=== PATIENT | female | born 1995 | race Caucasian/White ===

== ENCOUNTER 2017-05-24 11:01 | Inpatient (IN) | payer BC ==
--- NOTE | 2017-05-24 12:41 | RAD ---
HISTORY: Dyspnea Study: PA and lateral chest Comparison: None Findings: The trachea is midline. The cardiac silhouette is unremarkable. The lungs are clear without focal m ass or consolidation. There is no effusion or pneumothorax. The bony thorax is grossly unremarkable . IMPRESSION: No acute cardiopulmonary disease. Reported By:
[2017-05-25] MEDS: DUONEB 0.5 MG/3 MG NEB SCH ×3 (12:30→20:52)
[2017-05-25] MEDS ORDERED: SALINE 3% 15 ML NEB TX NEB ONE (13:00)
[2017-05-25] MEDS ORDERED: SALINE 3% 15 ML NEB TX ONE (14:27)
[2017-05-25] MEDS ORDERED: NS 1/2 1000 ML IV 1,000 ML IV ONE (14:47)
[2017-05-25] MEDS ORDERED: ZOSYN VIAL 4.5 GM IV ONE (14:48)
[2017-05-25] MEDS: TAMIFLU PO SCH ×2 (14:49→22:00)
[2017-05-25] MEDS: ZOSYN VIAL 4.5 GM 4.5 GM in NS 100 ML IV + SPIKE MINIBAG* 100 ML IV SCH ×2 (14:49→22:22)
[2017-05-25] MEDS: NS 1/2 1000 ML IV 1,000 ML IV SCH (14:49)
[2017-05-25 14:53] LABS: BASOPHILS % (AUTO) 0.1 % (0.2-1.0); HEMATOCRIT 38.7 % (36.0-47.0); HEMOGLOBIN 13.1 g/dL (12.0-16.0); LYMPHOCYTES # (AUTO) 1.3 X10^3/uL (1.3-2.9); LYMPHOCYTES % (AUTO) 6.2 % (21.0-51.0); MEAN CORPUSCULAR HEMOGLOBIN 29.9 pg (27.0-34.0); MEAN CORPUSCULAR HGB CONC 33.9 g/dL (33.0-35.0); MEAN CORPUSCULAR VOLUME 88.2 fL (80.0-100.0); MEAN PLATELET VOLUME 9.7 fL (7.4-11.0); MONOCYTES % (AUTO) 9.5 % (0.0-13.0); NEUTROPHILS # (AUTO) 17.2 x10^3/uL (2.2-4.8); NEUTROPHILS % (AUTO) 84.2 % (42.0-75.0); PLATELET COUNT 302 X10^3/uL (150.0-450.0); RED BLOOD COUNT 4.39 X10^6/uL (3.5-5.4); RED CELL DISTRIBUTION WIDTH 13.7 % (11.6-16.5); WHITE BLOOD COUNT 20.5 X10^3/uL (3.6-10.0)
[2017-05-25 15:08] LABS: ALANINE AMINOTRANSFERASE 17 Units/L (12-78); ALKALINE PHOSPHATASE 60 Units/L (46-116); ASPARTATE AMINO TRANSFERASE 16 Units/L (15-37); BLOOD UREA NITROGEN 16 mg/dL (7-18); CALCIUM 9.6 mg/dL (8.5-10.1); CARBON DIOXIDE 23.4 mmol/L (21-32); CHLORIDE 103 mmol/L (98-107); SODIUM 140 mmol/L (136-145); TOTAL PROTEIN 8.3 g/dL (6.4-8.2); eGFR BLACK RACES > 60 (>60); eGFR NON BLACK RACES > 60 (>60)
[2017-05-25 15:32] VITALS: BMI 21.2
[2017-05-25] MEDS: ROBITUSSIN DM PO SCH ×2 (16:07→22:00)
--- NOTE | 2017-05-25 16:16 | RAD ---
HISTORY: Shortness of breath, pneumonia Study: PA and lateral views of the chest Comparison:None Findings: No infiltrate, effusion or pneumothorax identified. The cardiac and mediastinal contours are within normal limits. The soft tissues are unremarkable. IMPRESSION: 1. No acute cardiopulmonary abnormality. Reported By:
[2017-05-25] MEDS ORDERED: CHLORASEPTIC SPRAY MT PRN (22:23)
[2017-05-25] MEDS: TUSSIONEX PENNKINETIC SUSP PO PRN (22:41)
[2017-05-26] MEDS: DUONEB 0.5 MG/3 MG NEB SCH ×6 (01:15→21:52)
[2017-05-26] MEDS ORDERED: DUONEB 0.5 MG/3 MG ONE (03:43)
[2017-05-26] MEDS ORDERED: NS 1/2 1000 ML IV 1,000 ML IV ONE ×2 (03:57→17:02)
[2017-05-26] MEDS: NS 1/2 1000 ML IV 1,000 ML IV SCH ×2 (04:04→17:35)
[2017-05-26] MEDS: ZOSYN VIAL 4.5 GM 4.5 GM in NS 100 ML IV + SPIKE MINIBAG* 100 ML IV SCH ×3 (06:03→21:12)
[2017-05-26 06:44] LABS: BASOPHILS % (AUTO) 0.2 % (0.2-1.0); EOSINOPHILS % (AUTO) 0.2 % (0.9-2.9); HEMATOCRIT 34.2 % (36.0-47.0); HEMOGLOBIN 11.6 g/dL (12.0-16.0); LYMPHOCYTES # (AUTO) 1.9 X10^3/uL (1.3-2.9); LYMPHOCYTES % (AUTO) 23.6 % (21.0-51.0); MEAN CORPUSCULAR VOLUME 88.3 fL (80.0-100.0); MEAN PLATELET VOLUME 9.4 fL (7.4-11.0); MONOCYTES # (AUTO) 0.9 x10^3/uL (0.3-0.8); MONOCYTES % (AUTO) 11.2 % (0.0-13.0); NEUTROPHILS # (AUTO) 5.1 x10^3/uL (2.2-4.8); NEUTROPHILS % (AUTO) 64.8 % (42.0-75.0); PLATELET COUNT 238 X10^3/uL (150.0-450.0); RED BLOOD COUNT 3.87 X10^6/uL (3.5-5.4); RED CELL DISTRIBUTION WIDTH 13.8 % (11.6-16.5); WHITE BLOOD COUNT 7.9 X10^3/uL (3.6-10.0)
[2017-05-26 06:55] LABS: ALANINE AMINOTRANSFERASE 14 Units/L (12-78); ALBUMIN 3.3 g/dL (3.4-5.0); ALKALINE PHOSPHATASE 44 Units/L (46-116); ASPARTATE AMINO TRANSFERASE 15 Units/L (15-37); BLOOD UREA NITROGEN 10 mg/dL (7-18); CALCIUM 8.6 mg/dL (8.5-10.1); CARBON DIOXIDE 25.1 mmol/L (21-32); CHLORIDE 104 mmol/L (98-107); COR CA(FOR HYPOALB) 9.2 mg/dL (8.5-10.1); CREATININE 0.72 mg/dL (0.55-1.02); SODIUM 140 mmol/L (136-145); TOTAL PROTEIN 6.9 g/dL (6.4-8.2); eGFR BLACK RACES > 60 (>60); eGFR NON BLACK RACES > 60 (>60)
--- NOTE | 2017-05-26 07:29 | RAD ---
HISTORY: Shortness of breath Study: Chest AP portable Comparison: 05/25/2017 Findings: The heart is within normal limits in size. The fabian are normal. The lungs are well inflated and free of acute infiltrates. No pleural effusions are identified. The bony thorax is unremarkable. IMPRESSION: No significant abnormality identified Reported By:
[2017-05-26] MEDS: TAMIFLU PO SCH ×2 (09:01→20:24)
[2017-05-26] MEDS: ROBITUSSIN DM PO SCH ×4 (09:01→20:24)
--- NOTE | 2017-05-26 10:25 | DR.UPDATE ---
H&P Update History and Physical Update: MISS AMES WAS SEEN IN THE OFFICE ON 05/25/2017. [facility], FAILED OUTPATIENT TREATMENT. PATIENT HAS BEEN SEEN AND EXAMINED WITH NO CHANGES NOTED TO H&P. Changes noted: NO Yes with the following:
[2017-05-26] MEDS ORDERED: OLOPATADINE HCL ENOSTRIL SCH (11:00)
[2017-05-26] MEDS ORDERED: NORGESTIMATE ETHINYL ESTRADIOL PO SCH ×2 (11:00→21:00)
[2017-05-26] MEDS: SOLU-Medrol 40 MG VIAL IVP SCH ×3 (12:03→21:12)
[2017-05-26] MEDS ORDERED: ZOSYN VIAL 4.5 GM IV ONE (13:33)
[2017-05-26] MEDS ORDERED: TESSALON PERLES PO PRN (13:34)
[2017-05-26] MEDS ORDERED: PATIENT'S HOME MEDICATION (Benzonatate [Benzonatate] 1 CAP) PO SCH (14:00)
[2017-05-26] MEDS: TUSSIONEX PENNKINETIC SUSP PO PRN (21:12)
[2017-05-27] MEDS: DUONEB 0.5 MG/3 MG NEB SCH ×4 (01:00→08:30)
[2017-05-27] MEDS ORDERED: NS 1/2 1000 ML IV 1,000 ML IV ONE (04:49)
[2017-05-27] MEDS: NS 1/2 1000 ML IV 1,000 ML IV SCH (05:18)
[2017-05-27] MEDS: SOLU-Medrol 40 MG VIAL IVP SCH (05:18)
[2017-05-27] MEDS: ZOSYN VIAL 4.5 GM 4.5 GM in NS 100 ML IV + SPIKE MINIBAG* 100 ML IV SCH (05:18)
[2017-05-27 06:46] LABS: BASOPHILS % (AUTO) 0.3 % (0.2-1.0); HEMATOCRIT 36.1 % (36.0-47.0); HEMOGLOBIN 12.2 g/dL (12.0-16.0); LYMPHOCYTES # (AUTO) 0.9 X10^3/uL (1.3-2.9); LYMPHOCYTES % (AUTO) 8.3 % (21.0-51.0); MEAN CORPUSCULAR HEMOGLOBIN 30.1 pg (27.0-34.0); MEAN CORPUSCULAR HGB CONC 33.9 g/dL (33.0-35.0); MEAN CORPUSCULAR VOLUME 88.8 fL (80.0-100.0); MONOCYTES # (AUTO) 0.7 x10^3/uL (0.3-0.8); MONOCYTES % (AUTO) 6.4 % (0.0-13.0); PLATELET COUNT 270 X10^3/uL (150.0-450.0); RED BLOOD COUNT 4.06 X10^6/uL (3.5-5.4); RED CELL DISTRIBUTION WIDTH 13.5 % (11.6-16.5); WHITE BLOOD COUNT 10.5 X10^3/uL (3.6-10.0)
[2017-05-27 07:30] LABS: ALANINE AMINOTRANSFERASE 18 Units/L (12-78); ALBUMIN 3.5 g/dL (3.4-5.0); ALKALINE PHOSPHATASE 48 Units/L (46-116); ASPARTATE AMINO TRANSFERASE 13 Units/L (15-37); BLOOD UREA NITROGEN 9 mg/dL (7-18); CALCIUM 9.1 mg/dL (8.5-10.1); CARBON DIOXIDE 24.4 mmol/L (21-32); CHLORIDE 103 mmol/L (98-107); COR NA(FOR HYPERGLY) 140 mmol/L (136-145); CREATININE 0.69 mg/dL (0.55-1.02); SODIUM 140 mmol/L (136-145); TOTAL PROTEIN 7.1 g/dL (6.4-8.2); eGFR BLACK RACES > 60 (>60); eGFR NON BLACK RACES > 60 (>60)
--- NOTE | 2017-05-27 07:35 | RAD ---
HISTORY: Shortness of breath Study: Chest AP portable Comparison: 05/26/2017 Findings: The heart is within normal limits in size. The fabian are normal. The lung garnica are clear. No pleural effusions are identified. The bony thorax is unremarkable. IMPRESSION: No significant abnormality identified Reported By:
[2017-05-27 09:28] VITALS: BP 138/67
== END 2017-05-27 13:10 | disposition home or self-care (01) | DRG 195 ==
LOC: RAD 11:01 → UNDOADMOB 05-25 13:35 → OBS 05-25 13:35 → OBSVTOIN 05-25 14:00 → OBS 05-25 14:00
PROVIDERS: ADMIT Internal Medicine; ATTEND Internal Medicine
DX: J18.8 Other pneumonia, unspecified organism (principal); J01.01 Acute recurrent maxillary sinusitis; J20.8 Acute bronchitis due to other specified organisms; R50.9 Fever, unspecified; R06.02 Shortness of breath
CPT/HCPCS: 36415; 71045; 71046; 80053; 85025; 87040; 87070; 87205; 94640; 94760; A4222; G9035; J2543; J2920; J7620